=== PATIENT | female | born 1980 | race Caucasian/White ===

== ENCOUNTER 2017-12-18 18:39 | Emergency (ER) | payer BC ==
[~2017-12-18] VITALS: Ht 149.9 cm; Wt 82.6 kg
[2017-12-18 18:45] VITALS: BP 139/79
[2017-12-18] MEDS ORDERED: cefTRIAXone SOD 1,000 MG VL IM ONE (21:15)
[2017-12-18] MEDS ORDERED: KETOROLAC TROMETH 60MG/2ML VIAL IM ONE (21:15)
== END 2017-12-18 22:37 | disposition home or self-care (01) ==
LOC: ER 18:40
DX: J02.0 Streptococcal pharyngitis (principal); K12.0 Recurrent oral aphthae; E07.89 Other specified disorders of thyroid; Z90.49 Acquired absence of other specified parts of digestive tract; Z88.1 Allergy status to other antibiotic agents; Z87.891 Personal history of nicotine dependence
CPT/HCPCS: 70450; 87070; 87880; 96372; 99285; J0696; J1885

== ENCOUNTER 2019-04-03 09:00 | Emergency (ER) | payer SELFPAY ==
[~2019-04-03] VITALS: Ht 165.1 cm; Wt 79.4 kg
[2019-04-03 09:01] VITALS: BP 115/72
[2019-04-03] MEDS ORDERED: ACETAMINOPHEN 500 MG TAB PO ONE (10:15)
== END 2019-04-03 10:19 | disposition home or self-care (01) ==
LOC: ER 09:00 → EDBD 09:00 → ER 10:19
DX: S16.1XXA Strain of muscle, fascia and tendon at neck level, initial encounter (principal); S46.911A Strain of unspecified muscle, fascia and tendon at shoulder and upper arm level, right arm, initial encounter; Z90.49 Acquired absence of other specified parts of digestive tract; Z88.1 Allergy status to other antibiotic agents; Z87.891 Personal history of nicotine dependence; V43.52XA Car driver injured in collision with other type car in traffic accident, initial encounter; Y93.89 Activity, other specified; Y92.410 Unspecified street and highway as the place of occurrence of the external cause; Y99.8 Other external cause status
CPT/HCPCS: 72040; 73030